=== PATIENT | male | born 1960 | race Caucasian/White ===

== ENCOUNTER 2017-05-05 12:49 | Emergency (ER) | payer MEDICAID ==
[~2017-05-05] VITALS: Ht 165.1 cm; Wt 74.4 kg
[2017-05-05 13:27] VITALS: Ht 165.1 cm; Wt 74.4 kg
[2017-05-05 14:34] VITALS: BP 120/68
== END 2017-05-05 14:34 | disposition home or self-care (01) ==
LOC: ED 12:49
DX: B34.9 Viral infection, unspecified (principal)
CPT/HCPCS: J7613; J7644